=== PATIENT | female | born 1950 | race Caucasian/White ===

== ENCOUNTER 2020-05-22 07:57 | Outpatient (CLI) | payer MEDICARE ==
[2020-05-22] VITALS (7 sets, daily range): BP systolic 133–162; BP diastolic 74–94
[~2020-05-22] VITALS: Ht 167.6 cm; Wt 72.7 kg
[2020-05-22] MEDS ORDERED: nitroGLYCERIN 0.4mg SUBLingual tab SL PRN (09:20)
[2020-05-22] MEDS ORDERED: normal saline 500ml IV soln 500 ML IV ONE (09:20)
[2020-05-22] MEDS ORDERED: regadenoson 0.4mg/5ml syringe IV ONE (09:20)
[2020-05-22] MEDS ORDERED: aminophylline 250mg/10ml inj. IV PRN (09:20)
== END 2020-05-22 23:59 | disposition home or self-care (01) ==
LOC: RAD 07:57
PROVIDERS: ATTEND Internal Medicine Cardiovascular Disease
DX: R07.89 Other chest pain (principal); Z01.810 Encounter for preprocedural cardiovascular examination
CPT/HCPCS: 76937; 78452; 93017; A9500; J2785; J7040

== ENCOUNTER 2021-01-29 08:33 | Day surgery (SDC) | payer MEDICARE ==
[~2021-01-29] VITALS: Ht 167.6 cm; Wt 69.7 kg
[2021-01-29] VITALS (8 sets, daily range): BP systolic 126–163; BP diastolic 56–116
[2021-01-29] MEDS ORDERED: ceFAZolin inj. 2,000 MG in normal saline soln 50 ML IV ONE (09:05)
[2021-01-29] MEDS ORDERED: ceFAZolin 2gm in dextrose, iso 50 ML IV ONE (09:05)
[2021-01-29 09:37] LABS: BASOPHILS # (AUTO) 0.2 X10'3 (0-0.2); BASOPHILS % (AUTO) 1.7 % (0-1); EOSINOPHILS # (AUTO) 0.1 X10'3 (0-0.9); EOSINOPHILS % (AUTO) 1.6 % (0-6); HEMATOCRIT 33.9 % (35.0-45.0); HEMOGLOBIN 11.5 g/dl (12.0-16.0); LYMPHOCYTES # (AUTO) 4.3 X10'3 (1.1-4.8); MEAN CORPUSCULAR HEMOGLOBIN 31.1 PG (27.0-31.0); MEAN CORPUSCULAR HGB CONC 33.8 g/dL (33.0-36.5); MEAN PLATELET VOLUME 7.3 FL (7.4-10.4); MONOCYTES # (AUTO) 0.7 X10'3 (0-0.9); MONOCYTES % (AUTO) 7.6 % (2-12); NEUTROPHILS # (AUTO) 4.2 X10'3 (1.8-7.7); NEUTROPHILS % (AUTO) 44.1 % (42-75); PLATELET COUNT 298 X10'3 (140-440); RED BLOOD COUNT 3.68 X10'6 (4.20-5.60); RED CELL DISTRIBUTION WIDTH 18.2 % (11.5-14.5); WHITE BLOOD COUNT 9.4 X10'3 (4.5-11.0)
[2021-01-29] MEDS ORDERED: CLON1PAT15 TOP (09:44)
[2021-01-29] MEDS ORDERED: WARF6TAB49 PO (09:44)
[2021-01-29] MEDS ORDERED: CARI-75 PO (09:44)
[2021-01-29] MEDS ORDERED: OMEP40CA13 PO (09:44)
[2021-01-29] MEDS ORDERED: AMLO5TAB PO (09:44)
[2021-01-29] MEDS ORDERED: HYDR-3972 PO (09:44)
[2021-01-29] MEDS ORDERED: LEVO150T8 PO (09:44)
[2021-01-29] MEDS ORDERED: LIDOcaine 1%/PF 5ML 10 MG/ML VIAL ONE (09:49)
[2021-01-29] MEDS ORDERED: diphenhydrAMINE 50 mg/ml inj ONE (09:49)
[2021-01-29] MEDS ORDERED: midazolam 1 mg/ML 2ml injection ONE ×2 (09:49→10:26)
[2021-01-29] MEDS ORDERED: fentaNYL/PF 50MCG/1 ML 2ML syringe ONE ×2 (09:50→10:27)
[2021-01-29] MEDS ORDERED: iohexol 300 MG/1 ML 50ml polymer ONE (10:03)
[2021-01-29] MEDS ORDERED: HYDROcodone/acetaminophen 5mg/325mg tablet PO PRN (11:20)
[2021-01-29] MEDS ORDERED: normal saline 1000ml 1,000 ML IV SCH (11:20)
== END 2021-01-29 14:15 | disposition home or self-care (01) ==
LOC: SSTAY O 08:33
PROVIDERS: ATTEND Radiology Diagnostic Radiology
DX: M80.88XA Other osteoporosis with current pathological fracture, vertebra(e), initial encounter for fracture (principal); M54.5 Low back pain; Z88.8 Allergy status to other drugs, medicaments and biological substances; Z79.899 Other long term (current) drug therapy; Z79.01 Long term (current) use of anticoagulants
CPT/HCPCS: 22514; 36415; 85025; 85610; 99152; 99153; C1713; J1200; J2250; J3010; Q9967; 88173; 88305; 88342